=== PATIENT | female | born 1970 | race Caucasian/White ===

== ENCOUNTER → 2019-07-22 10:56 | Outpatient (CLI) | payer OTHER, SELFPAY ==
--- NOTE | 2019-07-22 | DI.CT.S_ITS ---
PROCEDURE: CT LE LT W CON INDICATIONS: Left ankle pain. Remote history of multiple dislocations. TECHNIQUE: Noncontrast 1-1.5 mm axial sections acquired from above the tibiotalar joint to the bottom of the calcaneus, with coronal and sagittal reformats. COMPARISON: None. FINDINGS: Image quality: Excellent. Bones: Irregular contour involving medial corner of the talar dome weight-bearing portion with increased sclerotic changes and multiple subchondral cystic areas measures up to 5 mm in size suggestive of osteochondral lesions involving talar dome. Tiny radiolucency is also noted involving adjacent medial tibial plafond suggestive of a tiny 1-2 mm osteochondral lesion. No acute fracture or dislocation is seen. No other suspicious bony lesions. Mild osteoarthritic changes in tibiotalar joint and subtalar joint are seen. There is no hiatal: Shown. Tiny plantar enthesophyte is seen. Soft tissues: Achilles tendon is intact. Plantar aponeurosis is grossly intact. Extensor, flexor, and peroneal tendons are intact. No gross soft tissue mass or fluid collection is seen. Small calcification in the subcutaneous soft tissue just distal and posterior to the tip of lateral malleolus is seen, and is a nonspecific finding. IMPRESSION: 1. 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 Suggestion of multiple osteochondral lesions involving medial corner of the talar dome weight-bearing portion with largest lesion measures up to 5 mm in size. Suggestion of a tiny 1-2 mm osteochondral lesion in the adjacent medial aspect of tibial plafond. 2. No gross ankle tendon pathology. Dictated by: Steve Grullon M.D. on 07/22/2019 at 14:47 Approved by: Steve Grullon M.D. on 07/22/2019 at 15:02
== END ==
LOC: CT 10:59
PROVIDERS: Visit Provider Orthopaedic Surgery Foot and Ankle Surgery
DX: M25.572 Pain in left ankle and joints of left foot (principal)
CPT/HCPCS: 73700